=== PATIENT | female | born 1960 | race Caucasian/White ===

== ENCOUNTER 2016-12-10 05:51 | Emergency (ER) | payer OTHER, MEDICAID ==
[2016-12-10 07:31] LABS: ALBUMIN 3.8 g/dL (3.4-5.0); ALKALINE PHOSPHATASE 153 U/L (46-116); ALT/SGPT 25 U/L (14-59); AST/SGOT 18 U/L (15-37); BILIRUBIN TOTAL 0.5 mg/dL (0.20-1.00); CALCIUM 8.9 mg/dL (8.5-10.1); CARBON DIOXIDE 21.3 mmol/L (21-32); CHLORIDE SERUM 109 mmol/L (98-107); CHOLESTEROL 173 mg/dL (<200); CHOLESTEROL/HDL RATIO 2.9; CREATININE SERUM 0.6 mg/dL (0.6-1.0); GFR1 > 60 mL/min; GLUCOSE SERUM 112 mg/dL (74-106); HDL CHOLESTEROL 60 mg/dL (40-60); LIPASE 172 IU/L (73-393); POTASSIUM SERUM 3.4 mmol/L (3.5-5.1); SODIUM SERUM 143 mmol/L (136-145); TOTAL PROTEIN, SERUM 7.3 g/dL (6.4-8.2); TRIGLYCERIDES 88 mg/dL (<150)
[2016-12-10 07:43] LABS: FREE T4 1.36 ng/dL (0.76-1.46); FREE THYROXINE INDEX 3.5 ug/dL (1.4-4.5)
[2016-12-10 08:10] LABS: BASOPHIL % 0.9 % (0-2); PLATELET COUNT 259 x10^3mcL (130-400); RED CELL DISTRIBUTION WIDTH 13.9 % (11.5-14.5)
[2016-12-10 08:17] LABS: microscopic required? NO
[2016-12-10 08:41] LABS: urine erythrocyte NEGATIVE (NEGATIVE)
[2016-12-10 10:55] VITALS: BP 116/75
[2016-12-10 13:15] LABS: T3 TOTAL 1.41 ng/mL
== END 2016-12-10 10:55 | disposition home or self-care (01) ==
LOC: ED 05:51
PROVIDERS: Specialist
DX: R10.84 Generalized abdominal pain (principal); R11.0 Nausea; R19.5 Other fecal abnormalities
CPT/HCPCS: 83880; 84439; J1885; J2405; J3010; J7030